=== PATIENT | female | born 1995 | race Caucasian/White ===

== ENCOUNTER 2018-10-29 12:14 | Observation (INO) ==
[2018-10-29] MEDS ORDERED: Isovue-370 500 ML BOTTLE IVP ONE (12:29)
--- NOTE | 2018-10-29 12:50 | Emergency Department Note ---
Disposition Clinical Impression: Acute appendicitis Qualifiers: Acute appendicitis type: unspecified acute appendicitis type Qualified Code(s): K35.80 - Unspecified acute appendicitis Disposition: Admitted As Inpatient Condition: Good Forms: ED Satisfaction Letter, Work/School Release Time of Disposition: 14:31 Abdominal Pain HPI - General Chief Complaint: ED Abdominal Pain Stated Complaint: RLQ Pain Time Seen by Provider: 10/29/18 12:20 Source: patient Mode of arrival: ambulatory Limitations: no limitations Nursing Notes Reviewed: Yes Vital Signs Reviewed: Yes - History of Present Illness HPI Narrative: 23 year old female presnets to the Ed with complaints of RLQ pain and states that it started yeasterday after she held her urine in a long car ride and when she emptied her bladder she noticed her had diffuse bloating across her abdomen and just today she developed increased RLQ pain that is tender to plapation and whne she walk. She denies feers, or vomititng but states that she does have baseline nasuea. She has had one pregnacy in the past and it was an . Patient states tht she does not think she is currently . Patient states that she is not having any vaginal discharge or bleeding and no history of STIs in the past or ovarian cysts/endometriosis or other compaints. PAtinet states seh is concerned she might have appendicitis. Pain Scale: 6 - Related Data Home Medications Medication Instructions Recorded Confirmed No Known Home Drugs 10/29/18 10/29/18 Allergies Allergy/AdvReac Type Severity Reaction Status Date / Time No Known Allergies Allergy Verified 10/29/18 12:42 Constitutional: Denies: fever, chills, weakness, weight change Eyes: Denies: eye pain, eye discharge, vision change ENT ED: Denies: ear pain, throat pain, dental pain, hearing loss, epistaxis, congestion, dysphagia Cardiovascular: Denies: chest pain, palpitations, dyspnea on exertion, edema, syncope Respiratory: Denies: cough, dyspnea, wheezes, hemoptysis, stridor Gastrointestinal: Reports: abdominal pain, nausea. Denies: vomiting, diarrhea, constipation, hematemesis, melena, hematochezia Genitourinary: Denies: dysuria, frequency, hematuria, discharge Musculoskeletal: Denies: back pain, neck pain, arthralgia, myalgia Integumentary: Denies: rash, abrasion, lesions Neurological: Denies: headache, weakness, numbness, paresthesias, confusion, abnormal gait, vertigo Psychiatric: Denies: anxiety, depression, suicidal thoughts, homicidal thoughts, auditory hallucinations, visual hallucinations Endocrine: Denies: fatigue Hematological/Lymphatic: Denies: easy bleeding, easy bruising Allergic/Immunologic: Denies: facial swelling, urticaria Abdominal Pain PMH - Past Medical History Medical history: Reports: no medical history Female Surgical History: Reports: no surgical history Psychiatric history: Reports: no psych history - Social History Smoking status: Never smoker Alcohol use: Reports: none Drug use: Reports: none Physical Exam - General Limitations: no limitations General appearance: alert, in no apparent distress - Head Head exam: atraumatic, normocephalic, normal inspection - Eye Eye exam: Present: normal appearance, PERRL, EOMI - Expanded Eye Exam Pupils: Bilateral: reactive - ENT ENT exam: normal exam, normal oropharynx, mucous membranes moist - Expanded ENT Exam External ear exam: Present: normal external inspection Mouth exam: Present: normal external inspection Teeth exam: Present: normal inspection Throat exam: Present: normal inspection - Neck Neck exam: Present: normal inspection, full ROM, trachea midline - Chest Chest inspection: Present: normal inspection, symmetric chest wall rise - Respiratory Respiratory exam: Present: normal lung sounds bilaterally - Cardiovascular Cardiovascular exam: Present: regular rate, normal rhythm, normal heart sounds - Abdominal Exam Abdominal exam: Present: soft, tenderness, normal bowel sounds, Rovsing's sign, tenderness at McBurney's Point. Absent: Non-Tender, distention, guarding, rebound, rigidity, psoas sign, obturator sign, heel tap sign, Mauricio's sign Abdominal tenderness: Present: RLQ, moderate - Extremities Exam Extremities exam: Present: normal inspection, full ROM. Absent: tenderness, pedal edema - Expanded Upper Extremity Exam Shoulder exam: Present: normal inspection, full ROM Arm exam: Present: normal inspection, full ROM Elbow exam: Present: normal inspection, full ROM Forearm/Wrist exam: Present: normal inspection, full ROM Hand exam: Present: normal inspection, full ROM Vascular exam: Normal: capillary refill, radial pulse - Expanded Lower Extremity Exam Hip/Pelvis exam: Present: normal inspection, full ROM Upper leg exam: Present: normal inspection, full ROM Knee exam: Present: normal inspection, full ROM Lower leg exam: Present: normal inspection, full ROM Ankle exam: Present: normal inspection, full ROM Foot/toe exam: Present: normal inspection, full ROM Neurovascular/Tendon exam: Absent: motor deficit, sensory deficit, tendon deficit - Back Exam Back exam: Present: normal inspection, full ROM. Absent: tenderness - Neurological Exam Neurological exam: Present: alert, oriented X3 - Expanded Neurological Exam Patient oriented to: Present: person, place, time Coma Scale Eye Opening: Spontaneous Coma Scale Motor Response: Obeys Commands Coma Scale Verbal Response: Oriented Coma Scale Total: 15 - Psychiatric Psychiatric exam: Present: normal affect, normal mood - Skin Skin exam: Present: warm, dry, intact, normal color Course Course Narrative: I will do a ABCT with labs and treat with IVF and meds. - Consultations Consultation #1: discussed case with Dr. Marcano and he will accept patinet to his service. Meofxin for therapy. Time: 14:31 Vital Signs Temperature 98.5 F 10/29/18 12:16 Pulse Rate 97 10/29/18 12:16 Respiratory Rate 16 10/29/18 12:16 Blood Pressure 134/75 10/29/18 12:16 O2 Sat by Pulse Oximetry 100 10/29/18 12:16 Temperature 98.5 F 10/29/18 12:16 Pulse Rate 97 10/29/18 12:16 Respiratory Rate 16 10/29/18 12:16 Blood Pressure 134/75 10/29/18 12:16 O2 Sat by Pulse Oximetry 100 10/29/18 12:16 Oxygen Delivery Oxygen Delivery Room Air Abdominal Pain - Lab Data Result diagrams: 10/29/18 12:54 10/29/18 12:54 Lab Results 10/29/18 10/29/18 10/29/18 Range/Units 12:53 12:53 12:54 WBC 17.5 H (4.3-11.1) K/mcL RBC 4.58 (3.82-4.97) M/mcL Hgb 14.1 (11.5-15.4) g/dL Hct 41.7 (35.3-44.9) % MCV 91.0 (83.0-100.0) fL MCH 30.8 (28.0-33.3) pg MCHC 33.8 (31.6-35.5) g/dL RDW 11.8 (11.5-14.5) % Plt Count 215 (140-400) K/mcL MPV 9.7 (9.4-12.4) fL Immature Gran % 0.3 (0-4) % Seg Neutrophils % 86.9 % Lymphocytes % 7.7 % Monocytes % 4.8 % Eosinophils % 0.1 % Basophils % 0.2 % Neutrophils # 15.2 H (1.6-8.9) K/mcL Lymphocytes # 1.4 (0.6-4.6) K/mcL Monocytes # 0.8 (0.0-1.3) K/mcL Eosinophils # 0.0 (0.0-0.6) K/mcL Basophils # 0.0 (0.0-0.2) K/mcL Sodium (136-145) mEq/L Potassium (3.5-5.1) mEq/L Chloride (98-107) mEq/L Carbon Dioxide (23-29) mEq/L BUN (6-20) mg/dL Creatinine (0.60-1.20) mg/dL Est GFR ( Amer) (> 60) Est GFR (Non-Af Amer) (> 60) BUN/Creatinine Ratio (6-26) Glucose (70-105) mg/dL Calculated Osmolality (280-300) Lactic Acid (0.5-2.2) mmol/L Calcium (8.6-10.3) mg/dL Total Bilirubin (0.3-1.0) mg/dL Direct Bilirubin (0.0-0.2) mg/dL Indirect Bilirubin (0.0-1.2) mg/dL AST (13-39) Units/L ALT (7-52) Units/L Alkaline Phosphatase (34-104) Units/L Serum Total Protein (6.4-8.9) g/dL Albumin (3.5-5.7) g/dL Globulin (2.4-3.5) g/dL Albumin/Globulin Ratio (1.1-2.2) Lipase (11-82) Units/L Urine Color Yellow (Yellow) Urine Clarity Clear (Clear) Urine pH 6.0 (5.0-8.0) pH Units Ur Specific [place] 1.028 H (1.010-1.025) Urine Protein Negative (Neg-Trace) mg/dL Urine Glucose (UA) Normal (Normal) mg/dL Urine Ketones Negative (Negative) mg/dL Urine Blood Negative (Negative) Urine Nitrite Negative (Negative) Urine Bilirubin Negative (Negative) Urine Urobilinogen Normal (Normal) mg/dL Ur Leukocyte Esterase Negative (Negative) Ur Culture Indicated? NO (NO) Urine Test Negative (Negative) 10/29/18 10/29/18 Range/Units 12:54 12:54 WBC (4.3-11.1) K/mcL RBC (3.82-4.97) M/mcL Hgb (11.5-15.4) g/dL Hct (35.3-44.9) % MCV (83.0-100.0) fL MCH (28.0-33.3) pg MCHC (31.6-35.5) g/dL RDW (11.5-14.5) % Plt Count (140-400) K/mcL MPV (9.4-12.4) fL Immature Gran % (0-4) % Seg Neutrophils % % Lymphocytes % % Monocytes % % Eosinophils % % Basophils % % Neutrophils # (1.6-8.9) K/mcL Lymphocytes # (0.6-4.6) K/mcL Monocytes # (0.0-1.3) K/mcL Eosinophils # (0.0-0.6) K/mcL Basophils # (0.0-0.2) K/mcL Sodium 136 (136-145) mEq/L Potassium 3.8 (3.5-5.1) mEq/L Chloride 104 (98-107) mEq/L Carbon Dioxide 24 (23-29) mEq/L BUN 14 (6-20) mg/dL Creatinine 0.69 (0.60-1.20) mg/dL Est GFR ( Amer) > 60 (> 60) Est GFR (Non-Af Amer) > 60 (> 60) BUN/Creatinine Ratio 20 (6-26) Glucose 123 H (70-105) mg/dL Calculated Osmolality 284 (280-300) Lactic Acid 1.0 (0.5-2.2) mmol/L Calcium 9.1 (8.6-10.3) mg/dL Total Bilirubin 0.9 (0.3-1.0) mg/dL Direct Bilirubin 0.2 (0.0-0.2) mg/dL Indirect Bilirubin 0.7 (0.0-1.2) mg/dL AST 13 (13-39) Units/L ALT 13 (7-52) Units/L Alkaline Phosphatase 55 (34-104) Units/L Serum Total Protein 7.3 (6.4-8.9) g/dL Albumin 4.6 (3.5-5.7) g/dL Globulin 2.7 (2.4-3.5) g/dL Albumin/Globulin Ratio 1.7 (1.1-2.2) Lipase 7 L (11-82) Units/L Urine Color (Yellow) Urine Clarity (Clear) Urine pH (5.0-8.0) pH Units Ur Specific [place] (1.010-1.025) Urine Protein (Neg-Trace) mg/dL Urine Glucose (UA) (Normal) mg/dL Urine Ketones (Negative) mg/dL Urine Blood (Negative) Urine Nitrite (Negative) Urine Bilirubin (Negative) Urine Urobilinogen (Normal) mg/dL Ur Leukocyte Esterase (Negative) Ur Culture Indicated? (NO) Urine Test (Negative)
[2018-10-29 12:57] LABS: Bilirubin,Urine Negative (Negative); Blood,Urine Negative (Negative); Clarity,Urine Clear (Clear); Color,Urine Yellow (Yellow); Glucose,Urine (UA) Normal (Normal); Ketones,Urine Negative (Negative); Leukocyte Esterase,Urine Negative (Negative); Nitrite,Urine Negative (Negative); Protein,Urine Negative (Neg-Trace); Specific Gravity,Urine 1.028 (1.010-1.025); Urobilinogen,Urine Normal (Normal)
[2018-10-29 13:06] LABS: White Blood Count 17.5 K/mcL (4.3-11.1)
[2018-10-29 13:07] LABS: Basophils % 0.2 %; Eosinophils % 0.1 %; Hematocrit 41.7 % (35.3-44.9); Hemoglobin 14.1 g/dL (11.5-15.4); Immature Granulocytes % 0.3 % (0-4); Lymphocytes # 1.4 K/mcL (0.6-4.6); Lymphocytes % 7.7 %; Mean Corpuscular HGB Conc 33.8 g/dL (31.6-35.5); Mean Corpuscular Hemoglobin 30.8 pg (28.0-33.3); Mean Platelet Volume 9.7 fL (9.4-12.4); Monocytes # 0.8 K/mcL (0.0-1.3); Monocytes % 4.8 %; Neutrophils # 15.2 K/mcL (1.6-8.9); Platelet Count 215 K/mcL (140-400); Red Blood Count 4.58 M/mcL (3.82-4.97); Red Cell Distribution Width 11.8 % (11.5-14.5); Segmented Neutrophils % 86.9 %
[2018-10-29 13:28] LABS: Alanine Aminotransferase 13 Units/L (7-52); Albumin 4.6 g/dL (3.5-5.7); Albumin/Globulin Ratio 1.7 (1.1-2.2); Alkaline Phosphatase 55 Units/L (34-104); Aspartate Amino Transferase 13 Units/L (13-39); BUN/Creatinine Ratio 20 (6-26); Bilirubin,Direct 0.2 mg/dL (0.0-0.2); Bilirubin,Indirect 0.7 mg/dL (0.0-1.2); Bilirubin,Total 0.9 mg/dL (0.3-1.0); Blood Urea Nitrogen 14 mg/dL (6-20); Calcium 9.1 mg/dL (8.6-10.3); Carbon Dioxide 24 mEq/L (23-29); Chloride 104 mEq/L (98-107); Globulin 2.7 g/dL (2.4-3.5); Glucose 123 mg/dL (70-105); Lipase 7 Units/L (11-82); Osmolality,Calculated 284 (280-300); Potassium 3.8 mEq/L (3.5-5.1); Sodium 136 mEq/L (136-145); Total Protein 7.3 g/dL (6.4-8.9); eGFR For African Americans > 60 (> 60); eGFR For Non-African Americans > 60 (> 60)
[2018-10-29] MEDS ORDERED: *HR* FentaNYL (PF) 100 MCG/2 ML VIAL IVP ONE (13:35)
[2018-10-29] MEDS ORDERED: cefOXitin 2,000 MG in Water for inj. (sterile) 20 ML IVP ONE (14:29)
[2018-10-29] MEDS ORDERED: 0.9 % Sodium Chloride 1,000 ML IVC SCH ×3 (15:00→23:31)
--- NOTE | 2018-10-29 15:18 | Acute Care Surgery H&P ---
Date of Encounter: 10/29/18 Time of Encounter: 15:10 Assessment and Plan (1) Acute appendicitis Current Visit: Yes Status: Acute The assessment and plan as outlined above was discussed with the patient and/or family members who expressed understanding and agreement. All questions were answered. Acute appendicitis by CAT scan and clinical history as well as laboratory testing. We will recommend laparoscopic appendectomy. We will proceed on an urgent basis later today. We will start IV fluids and keep her nothing by mouth as well as initiate antibiotic therapy Qualifiers: Acute appendicitis type: with localized peritonitis Appendicitis gangrene presence: unspecified whether gangrene present Appendicitis perforation presence: unspecified whether perforation present Appendicitis abscess presence: unspecified whether abscess present Qualified Code(s): K35.30 - Acute appendicitis with localized peritonitis, without perforation or gangrene History of Present Illness Chief complaint: Abdominal pain HPI: Ms. Jacobsen is a 23 year old female With new onset abdominal pain last evening. This was generalized and nonspecific. She had pain centrally and suprapubic. Overnight, the pain localized right lower quadrant. And she developed pain with motion. She is anorexic. She sought evaluation in the emergency room. White blood cell count is elevated at 17,000. CAT scan is remarkable for acute appendicitis. I discussed the risks and benefits with the patient she understands this and wished to proceed. We will proceed with laparoscopic appendectomy on an urgent basis. Past Med Surg Social Fam HX - Past Medical History Medical history: no medical history Psychiatric history: no psych history - Social History Smoking Status: Never smoker Alcohol use: none Drug use: none Medications and Allergies No Known Home Drugs 10/29/18 [History] Allergy/AdvReac Type Severity Reaction Status Date / Time No Known Allergies Allergy Verified 10/29/18 12:42 Review of Systems All systems PM: The remainder of the systems were reviewed and are negative General Surgery Exam Initial Vital Signs Temp Pulse Resp BP Pulse Ox 98.5 F 97 16 134/75 100 10/29/18 12:16 10/29/18 12:16 10/29/18 12:16 10/29/18 12:16 10/29/18 12:16 - General physical appearance well developed, well nourished, no distress - Neck no masses, no bruits, trachea midline, no lymphadectomy, no venous distension - Respiratory normal expansion, normal respiratory effort, clear to percussion, clear to auscultation - Cardiovascular Cardiovascular exam: Present: RRR, no murmurs/rubs/gallops - Abdomen Abdomen general surgery: Present: bowel sounds present, tender Abdominal Tenderness: Present: RLQ (With guarding and rebound over McBurney's point) - Integumentary Integumentary general surgery: Present: warm and dry, no abnormal pigmentation - Neurologic Present: CN 2-12 grossly intact, normal coordination, normal sensation - Psychiatric Psychiatric general surgery: Present: appropriate, oriented to person, oriented to place, oriented to time, speech is normal, memory intact Results - Labs 10/29/18 12:54 10/29/18 12:54 Abnormal lab results WBC 17.5 K/mcL (4.3-11.1) H 10/29/18 12:54 15.2 K/mcL (1.6-8.9) H 10/29/18 12:54 Glucose 123 mg/dL (70-105) H 10/29/18 12:54 7 Units/L (11-82) L 10/29/18 12:54 Ur Specific [place] 1.028 (1.010-1.025) H 10/29/18 12:53 Diabetes panel 10/29/18 Range/Units 12:54 Sodium 136 (136-145) mEq/L Potassium 3.8 (3.5-5.1) mEq/L Chloride 104 (98-107) mEq/L Carbon Dioxide 24 (23-29) mEq/L BUN 14 (6-20) mg/dL Creatinine 0.69 (0.60-1.20) mg/dL Glucose 123 H (70-105) mg/dL Calcium 9.1 (8.6-10.3) mg/dL AST 13 (13-39) Units/L ALT 13 (7-52) Units/L Alkaline Phosphatase 55 (34-104) Units/L Albumin 4.6 (3.5-5.7) g/dL Calcium panel 10/29/18 Range/Units 12:54 Calcium 9.1 (8.6-10.3) mg/dL Albumin 4.6 (3.5-5.7) g/dL Pituitary panel 10/29/18 Range/Units 12:54 Sodium 136 (136-145) mEq/L Potassium 3.8 (3.5-5.1) mEq/L Chloride 104 (98-107) mEq/L Carbon Dioxide 24 (23-29) mEq/L BUN 14 (6-20) mg/dL Creatinine 0.69 (0.60-1.20) mg/dL Glucose 123 H (70-105) mg/dL Calcium 9.1 (8.6-10.3) mg/dL Adrenal panel 10/29/18 Range/Units 12:54 Sodium 136 (136-145) mEq/L Potassium 3.8 (3.5-5.1) mEq/L Chloride 104 (98-107) mEq/L Carbon Dioxide 24 (23-29) mEq/L BUN 14 (6-20) mg/dL Creatinine 0.69 (0.60-1.20) mg/dL Glucose 123 H (70-105) mg/dL Calcium 9.1 (8.6-10.3) mg/dL Total Bilirubin 0.9 (0.3-1.0) mg/dL AST 13 (13-39) Units/L ALT 13 (7-52) Units/L Alkaline Phosphatase 55 (34-104) Units/L Albumin 4.6 (3.5-5.7) g/dL All other labs normal. - Imaging CT scan - abdomen: image reviewed (I personally reviewed CAT scan of the abdomen. Findings are consistent with acute appendicitis, nonperforated with no evidence of abscess formation.)
[2018-10-29] MEDS ORDERED: Morphine Sulfate 2 MG/ML SYRINGE IVP ONE (16:25)
[2018-10-29] MEDS ORDERED: Ondansetron 4 MG/2 ML VIAL IVP PRN ×2 (17:02→23:31)
[2018-10-29] MEDS ORDERED: CefOXitin 1,000 MG VIAL ONE (20:09)
--- NOTE | 2018-10-29 20:33 | Anesthesia Evaluation PreOp ---
Date of Encounter: 10/29/18 Time of Encounter: 20:43 - Past History Planned Operation: lap appy Cardiac History: Denies any Significant Hx Pulmonary History: Denies Any Significant HX JUNIOR PROJECT COORDINATOR History: Denies Any Significant HX Other Medical History: Denies Any Significant HX Anesthesia History: No Prior Anesthetic Complications (no fhx of problems with anesthesia) Alcohol Use: none Drug use: none Medications and Allergies No Known Home Drugs 10/29/18 [History] Allergy/AdvReac Type Severity Reaction Status Date / Time No Known Allergies Allergy Verified 10/29/18 12:42 - Meds/Allergy Pre-op Review Medications Reviewed: Yes Allergies Reviewed: Yes Beta Blockers on Current Med List: No Anesthesia Results - Labs 10/29/18 12:54 10/29/18 12:54 Anesthesia Exam Last Vital Signs Temp 99.3 F 10/29/18 18:55 Pulse 81 10/29/18 18:55 Resp 15 10/29/18 18:55 BP 115/70 10/29/18 18:55 Pulse Ox 99 10/29/18 18:55 Weight: 74 kg NPO (# of Hours): > 8 hrs - HEENT Pupil (Motor): Pupils equal, EOMI Mallampati: II Teeth: Normal Oral Opening: Greater than 3 - JUNIOR PROJECT COORDINATOR LOC: Oriented - Cardiac Rhythm: Regular Murmur: None - Pulmonary Breath Sounds: bilateral Clear Respiratory Effort: Symmetrical Anesthesia Assess/Plan ASA Score: 1 Level of consciousness: Cooperative Anesthetic Plan: General Monitoring Plan: Standard Monitors Recovery Plan: PACU
[2018-10-29] MEDS ORDERED: *HR* Propofol 200 MG/20 ML VIAL IVP ONE (20:41)
[2018-10-29] MEDS ORDERED: Ondansetron 4 MG/2 ML VIAL ONE (20:41)
[2018-10-29] MEDS ORDERED: Dexamethasone 4 MG/ML VIAL ONE (20:41)
[2018-10-29] MEDS ORDERED: *HR* Midazolam HCl 2 MG/2 ML VIAL ONE (20:41)
[2018-10-29] MEDS ORDERED: Lidocaine -MPF 2% 2 ML VIAL ONE (20:41)
[2018-10-29] MEDS ORDERED: *HR* Succinylcholine 200 MG/10 ML VIAL IVP ONE (20:41)
[2018-10-29] MEDS ORDERED: *HR* FentaNYL (PF) 100 MCG/2 ML VIAL ONE ×2 (20:41→21:45)
[2018-10-29] MEDS ORDERED: *HR* OxyCODONE Immed Rel 5 MG TABLET PO PRN (20:45)
[2018-10-29] MEDS ORDERED: *HR* Promethazine 25 MG/ML VIAL IVP PRN (20:45)
[2018-10-29] MEDS ORDERED: CefOXitin 2,000 MG VIAL ONE (21:06)
[2018-10-29] MEDS ORDERED: *HR* Rocuronium Bromide 50 MG/5 ML VIAL ONE (21:09)
[2018-10-29] MEDS ORDERED: Ketorolac 30 MG/ML VIAL ONE (21:26)
[2018-10-29] MEDS ORDERED: Neostigmine Methylsulfate 3 MG/3 ML SYRINGE ONE (21:37)
--- NOTE | 2018-10-29 21:56 | Operative Note ---
Date of procedure: 10/29/18 Pre-op diagnosis: Acute appendicitis Post-op diagnosis: same Procedure: Laparoscopic appendectomy Anesthesia: FABIANO Surgeon: Leonardo Marcano Was there an campus administrative assistant present: No Estimated blood loss (cc): 10 Specimen: Appendix Condition: stable Disposition: PACU Procedure in Detail: After informed consent the patient was taken to the major operating suite placed in the supine position and given adequate general endotracheal anesthesia. The abdomen is prepped and draped in sterile fashion utilizing ChloraPrep and standard draping techniques. Timeout was taken and the patient is identified. I made a vertical midline incision below the umbilicus and dissected down the level fascia. 2 traction stitches of 0 Vicryl were placed. I placed a Inman trocar. The patient had acutely inflamed retrocecal appendicitis. There was free fluid in the pelvis. There was no generalized peritonitis, however, the appendix was covered with pus.. I placed a 5 trocar in the suprapubic area and a 12 trocar in the right upper quadrant. The lateral peritoneal attachments holding the retrocecal appendix in place were divided. This gave me mobilization on the retrocecal appendix. I divided the appendix off the base the cecum with a gastrointestinal load on the gastrointestinal stapler. The mesentery was broadened as is typical with most retrocecal appendix. The mesial appendix required 2 loads on the vascular stapler. This secured the mesial appendix with no bleeding. The right gutter, staple line, and the pelvis were irrigated with copious amounts of antibiotic containing solution. All staple lines were intact. No evidence of bleeding. All trochars were removed. Fascia was closed with 0 Vicryl. The skin was closed with 2-0 Vicryl and 4-0 Vicryl. I injected 30 mL of Marcaine for local anesthetic. She tolerated the procedure well.
--- NOTE | 2018-10-29 22:25 | Anesthesia Evaluation Post Op ---
Date of Encounter: 10/29/18 Time of Encounter: 22:25 - Vital Signs Vital Signs: Last Vital Signs Temp 98.1 F 10/29/18 21:57 Pulse 65 10/29/18 22:17 Resp 14 10/29/18 22:17 BP 129/77 10/29/18 22:17 Pulse Ox 99 10/29/18 22:17 - Lungs Lungs: Clear Ascult./Percussion - Airway Airway: Non-obstructed - Cardiovascular Regular Rate - Mental Status Mental Status: Alert & Oriented, Answers Appropriately - Pain Pain Scale: 2 - Nausea Vomiting Nausea Vomiting: Not Present - Hydration Hydration: NPO - Discharge PostOp Status: Transfer Patient to floor
[2018-10-30] MEDS ORDERED: cefOXitin 2,000 MG in 0.9 % Sodium Chloride Mini Bag 100 ML IVPB SCH
[2018-10-30] MEDS: cefOXitin 2,000 MG in Water for inj. (sterile) 20 ML IVP SCH ×3 (00:57→16:24)
--- NOTE | 2018-10-30 07:58 | AcuteCareSurgery Progress Note ---
Date of Encounter: 10/30/18 Time of Encounter: 07:57 - Assessment and Plan (1) Acute appendicitis Current Visit: Yes Status: Acute Patient is postop day 1 from a laparoscopic appendectomy. Continue with IV antibiotics and will advance diet to regular food. If she does well around dinnertime then we will consider discharge home. Qualifiers: Acute appendicitis type: with localized peritonitis Appendicitis gangrene presence: unspecified whether gangrene present Appendicitis perforation presence: unspecified whether perforation present Appendicitis abscess presence: unspecified whether abscess present Qualified Code(s): K35.30 - Acute appendicitis with localized peritonitis, without perforation or gangrene Subjective Patient reports: other (Patient states that she does have some abdominal tenderness mainly around the bellybutton area but does not have the abdominal pain on the right side like she had yesterday. No nausea.) Objective Vital Signs - Last 8 Hours Temp Pulse Resp BP Pulse Ox 10/30/18 06:25 98.3 F 70 15 115/72 99 10/30/18 04:10 98.2 F 79 14 111/67 98 10/30/18 01:36 86 16 115/65 97 10/30/18 00:35 98.4 F 86 16 120/74 97 Intake and Output 10/29/18 10/29/18 10/30/18 15:59 23:59 07:59 Intake Total 0 1110 / 1110 Output Total 0 / 0 Balance - 1110 / 1110 Intake: IV Fluids 1020 / 1020 0.9 % Sodium Chloride 1,000 ML 1000 / 1000 @ 100 mls/hr IVC .Q10H [facility] Rx#: [id number] Mefoxin 2,000 MG In Water for inj. (sterile) 20 ML @ 300 mls/ hr IVP Q8HR [facility] Rx#:[id number] Oral 0 / 0 90 / 90 Output: Urine 0 / 0 0 / 0 Estimated Blood Loss Other: Stool Characteristics Normal for Patient # Voids 1 Weight 74.117 kg 73.9 kg Blood Glucose* 94 112 Patient Weight 10/30/18 23:59 Weight 73.9 kg - General physical appearance well nourished, no distress - Abdomen Abdomen: Present: soft, tender (Mild kaley-incisional tenderness. Dermabond placed over the incision. No erythema.) - Labs 10/29/18 12:54 10/29/18 12:54 Diabetes panel 10/29/18 Range/Units 12:54 Sodium 136 (136-145) mEq/L Potassium 3.8 (3.5-5.1) mEq/L Chloride 104 (98-107) mEq/L Carbon Dioxide 24 (23-29) mEq/L BUN 14 (6-20) mg/dL Creatinine 0.69 (0.60-1.20) mg/dL Glucose 123 H (70-105) mg/dL Calcium 9.1 (8.6-10.3) mg/dL AST 13 (13-39) Units/L ALT 13 (7-52) Units/L Alkaline Phosphatase 55 (34-104) Units/L Albumin 4.6 (3.5-5.7) g/dL Calcium panel 10/29/18 Range/Units 12:54 Calcium 9.1 (8.6-10.3) mg/dL Albumin 4.6 (3.5-5.7) g/dL Pituitary panel 10/29/18 Range/Units 12:54 Sodium 136 (136-145) mEq/L Potassium 3.8 (3.5-5.1) mEq/L Chloride 104 (98-107) mEq/L Carbon Dioxide 24 (23-29) mEq/L BUN 14 (6-20) mg/dL Creatinine 0.69 (0.60-1.20) mg/dL Glucose 123 H (70-105) mg/dL Calcium 9.1 (8.6-10.3) mg/dL Adrenal panel 10/29/18 Range/Units 12:54 Sodium 136 (136-145) mEq/L Potassium 3.8 (3.5-5.1) mEq/L Chloride 104 (98-107) mEq/L Carbon Dioxide 24 (23-29) mEq/L BUN 14 (6-20) mg/dL Creatinine 0.69 (0.60-1.20) mg/dL Glucose 123 H (70-105) mg/dL Calcium 9.1 (8.6-10.3) mg/dL Total Bilirubin 0.9 (0.3-1.0) mg/dL AST 13 (13-39) Units/L ALT 13 (7-52) Units/L Alkaline Phosphatase 55 (34-104) Units/L Albumin 4.6 (3.5-5.7) g/dL Consult Discharge Plan - Plan Referrals: NONE,PCP [Primary Care Provider] -
[2018-10-30] MEDS: *HR* OxyCODONE/APAP 5/325 TABLET PO PRN ×2 (08:47→16:25)
[2018-10-30 14:54] VITALS: BP 103/64
--- NOTE | 2018-10-30 16:08 | Discharge Summary ---
Orders not resulted at time of discharge: Pending orders 10/29/18 21:42 Surgical Pathology [PTH] Routine Date of Encounter: 10/30/18 Time of Encounter: 16:05 - Discharge Diagnosis (1) Acute appendicitis Priority: Primary Status: Acute Qualifiers: Acute appendicitis type: with localized peritonitis Appendicitis gangrene presence: unspecified whether gangrene present Appendicitis perforation presence: without perforation Appendicitis abscess presence: without abscess Qualified Code(s): K35.30 - Acute appendicitis with localized peritonitis, without perforation or gangrene General Surgery Exam Initial Vital Signs Temp Pulse Resp BP Pulse Ox 98.5 F 97 16 134/75 100 10/29/18 12:16 10/29/18 12:16 10/29/18 12:16 10/29/18 12:16 10/29/18 12:16 - Hospital Course Hospital course: Ms. Jacobsen is a 23 year old female who presented with symptoms of acute appendicitis and underwent a laparoscopic appendectomy yesterday tolerated the procedure well. She was able to tolerate a by mouth diet and tolerate ambulation on postop day 1 and was able to be discharged home with instructions to follow-up with [facility] in 2 weeks. Time spent discussing smoking cessation with patient: 3 to 10 minutes - Time Spent with Patient Total time spent providing and/or coordinating discharge services: Less than 30 minutes - Discharge Medications Prescriptions: New Amoxicillin/Clavulanate [Augmentin] 875 mg PO BIDWM 5 Days #10 tablet OxyCODONE/APAP 5/325 [Percocet 5/325 MG] 1 each PO Q6HR PRN 7 Days #28 tablet PRN Reason: Pain Home Medications: Amoxicillin/Clavulanate [Augmentin] 875 mg PO BIDWM 5 Days #10 tablet 10/30/18 [Rx] OxyCODONE/APAP 5/325 [Percocet 5/325 MG] 1 each PO Q6HR PRN 7 Days #28 tablet 10/30/18 [Rx] Allergies/Adverse Reactions: Allergy/AdvReac Type Severity Reaction Status Date / Time No Known Allergies Allergy Verified 10/29/18 12:42 Date of admission: 10/29/18 16:26 Primary care physician: PCP NONE Discharging clinician: Benoit Joseph Anticipated date of discharge: 10/30/18 Labs on day of discharge: Labs from last 24 hours 10/30/18 10/29/18 00:13 17:46 POC Glucose 112 H 94 - Impressions ITS Impressions Abdomen/Pelvis CT 10/29/18 12:29 IMPRESSION: Findings are consistent with acute uncomplicated appendicitis, without evidence of perforation, free air, or abscess. D/ / 10/29/2018 14:08:10 Babak Garcia MD / [facility] Interpreting Provider: Babak Garcia MD - Patient Status Disposition: Home, Self-Care Condition: Good Overall status at discharge: patient is progressing back to baseline - Discharge Instructions Instructions: Appendicitis (DC) Follow Up With: Benoit Joseph MD [Partnered Physician] - (Web request entered. Office will call with date and time of appointment.) NONE,PCP [Primary Care Provider] - Additional Instructions: No heavy lifting greater than 15lbs for two weeks. May shower in two days.
== END 2018-10-30 18:09 | disposition home or self-care (01) ==
LOC: EMEROOARM 12:14 → 3ANU 12:14
PROVIDERS: ADMIT Internal Medicine Nephrology; ATTEND Internal Medicine Nephrology